=== PATIENT | male | born 1990 | race Two or more races ===

== ENCOUNTER 2018-06-17 16:34 | Inpatient (IN) | payer OTHER ==
[2018-06-17 19:45] VITALS: BMI 26.9
--- NOTE | 2018-06-17 21:04 | HP ---
COWS - Scale Resting Pulse: 0= [place] 80 or Below Sweatin=Flushed/Facial Moisture Restless Observation: 1= Difficult to Sit Still Pupil Size: 1= Pupils >than Normal Bone or Joint Aches: 1= Mild Discomfort Runny Nose/ Eye Tearin= Runny Nose/Eyes GI Upset > 30mins: 2= Nausea/Diarrhea Tremor Observation: 1= Tremor [place], Not Seen Yawning Observation: 1= 1-2x During Session Anxiety or Irritability: 1=Feels Anxious/Irritable Goose Flesh Skin: 3=Piloerection COWS Score: 15 CIWA Score Nausea/Vomitin Muscle Tremors: 2 Anxiety: 2 Agitation: 0-Normal Activity Paroxysmal Sweats: 2 Orientation: 1-Uncertain about Date Tacttile Disturbances: 1-Very Mild Itch/Numbness Auditory Disturbances: 1-Very Mild Visual Disturbances: 1-Very Mild Sensitivity Headache: 2-Mild CIWA-Ar Total Score: 14 - Admission Criteria OASAS Guidelines: Admission for Medically Managed Detox: Requires at least one of the followin. CIWA greater than 12 2. Seizures within the past 24 hours 3. Delirium tremens within the past 24 hours 4. Hallucinations within the past 24 hours 5. Acute intervention needed for co occurring medical disorder 6. Acute intervention needed for co occurring psychiatric disorder 7. Severe withdrawal that cannot be handled at a lower level of care (continued vomiting, continued diarrhea, abnormal vital signs) requiring intravenous medication and/or fluids 8. Admission ROS [facility] Chief Complaint: Withdrawal symptoms Allergies/Adverse Reactions: Allergies Allergy/AdvReac Type Severity Reaction Status Date / Time No Known Allergies Allergy Verified 06/17/18 19:33 History of Present Illness: 27 y.o. man with an extensive history of heroin, alcohol, marijuana and Xanax dependence is here seeking detox services. He reports he last completed detox in January, at [facility]. [employer] reviewed and 90 tablets of Xanax was last dispensed on 06/12/18; utox negative for benzo's. Exam Limitations: No Limitations - Ebola screening Have you traveled outside of the country in the last 21 days: No Have you had contact with anyone from an Ebola affected area: No Do you have a fever: No - Review of Systems Constitutional: Chills, Loss of Appetite, Changes in sleep, Weakness, Unexplained wgt Loss EENT: reports: Ear Discharge, Nose Congestion Respiratory: reports: No Symptoms reported Cardiac: reports: No Symptoms Reported GI: reports: Nausea : reports: No Symptoms Reported Musculoskeletal: reports: Back Pain, Joint Swelling, Neck Pain Integumentary: reports: No Symptoms Reported Neuro: reports: Headache, Seizure (Benzo induced), Tremors, Weakness, Dizziness Endocrine: reports: No Symptoms Reported Hematology: reports: No Symptoms Reported Psychiatric: reports: Orientated x3, Anxious, Depressed, other (INSOMNIA, ADHD) Other Systems: Reviewed and Negative Patient History - Patient Medical History Hx Anemia: No Hx Asthma: No Hx Chronic Obstructive Pulmonary Disease (COPD): No Hx Cancer: No Hx Cardiac Disorders: No Hx Congestive Heart Failure: No Hx Hypertension: No Hx Hypercholesterolemia: No Hx Pacemaker: No HX Cerebrovascular Accident: No Hx Seizures: Yes (BENZO INDUCED: LAST WAS 01/2018) Hx Dementia: No Hx Diabetes: No Hx Gastrointestinal Disorders: No Hx Liver Disease: No Hx Genitourinary Disorders: No Hx Sexually Transmitted Disorders: No Hx Renal Disease (ESRD): No Hx Thyroid Disease: No Hx Human Immunodeficiency Virus (HIV): No Hx Hepatitis C: No Hx Depression: Yes Hx Suicide Attempt: No Hx Bipolar Disorder: No Hx Schizophrenia: No - Patient Surgical History Past Surgical History: No - PPD History Previous Implant?: Yes Documented Results: Negative w/o proof PPD to be Administered?: Yes - Reproductive History Patient is a Female of Child Bearing Age (11 -55 yrs old): No - Smoking Cessation Smoking history: Current every day smoker Have you smoked in the past 12 months: Yes Aproximately how many cigarettes per day: 3 Initiated information on smoking cessation: Yes 'Breaking Loose' booklet given: 06/17/18 - Substance & Tx. History Hx Alcohol Use: Yes Hx Substance Use: Yes Substance Use Type: Alcohol, Cocaine, Heroin, Marijuana, Opiates, Tranquilizers Hx Substance Use Treatment: Yes (DETOX: 01/2018) - Substances abused Heroin Substance route: Injection Frequency: Daily Amount used: 2 GM Age of first use: 15 Date of last use: 06/17/18 Alcohol Substance route: Oral Frequency: Daily Amount used: 1 PINT Age of first use: 12 Date of last use: 06/16/18 Alprazolam (Xanax) Substance route: Oral Frequency: Daily Amount used: 6-8MG Age of first use: 15 Date of last use: 06/16/18 Crack Substance route: Smoking Frequency: Daily Amount used: 1 GM Age of first use: 22 Date of last use: 06/16/18 Marijuana/Hashish Substance route: Smoking Frequency: Daily Amount used: 3 JOINTS Age of first use: 14 Date of last use: 06/16/18 Oxycontin Substance route: Injection Frequency: Daily Amount used: 2 TABS Age of first use: 26 Date of last use: 06/16/18 Family Disease History - Family Disease History Family Disease History: Respiratory: Grandparent Admission Physical Exam [facility] - Vital Signs Vital Signs: Vital Signs - 24 hr 06/17/18 19:25 Temperature 99.7 F H Pulse Rate 62 Respiratory 18 Rate Blood Pressure 126/90 - Physical General Appearance: Yes: Tremorous, Irritable, Sweating, Anxious HEENTM: Yes: Hearing grossly Normal, Normocephalic, Normal Voice Respiratory: Yes: Chest Non-Tender, Lungs Clear, Normal Breath Sounds, No Respiratory Distress, No Accessory Muscle Use Neck: Yes: No masses,lesions,Nodules Breast: Yes: Breast Exam Deferred Cardiology: Yes: Regular Rhythm, Regular Rate Abdominal: Yes: Normal Bowel Sounds, Non Tender, Flat Genitourinary: Yes: Other (no complaints reported) Musculoskeletal: Yes: Back pain Extremities: Yes: Normal Inspection, Normal Range of Motion, Non-Tender Neurological: Yes: Alert, Normal Mood/Affect, Normal Response Integumentary: Yes: Normal Color, Dry, Warm Lymphatic: Yes: Within Normal Limits - Diagnostic (1) Uncomplicated opioid dependence Current Visit: Yes Status: Chronic (2) Alcohol dependence with uncomplicated intoxication Current Visit: Yes Status: Chronic (3) Marijuana dependence Current Visit: Yes Status: Chronic (4) Benzodiazepine dependence Current Visit: Yes Status: Chronic (5) Cocaine dependence Current Visit: Yes Status: Chronic (6) Nicotine dependence Current Visit: Yes Status: Chronic Cleared for Admission [facility] - Detox or Rehab [facility] Level of Care: Medically Managed Detox Regimen/Protocol: Methadone (Methadone and Ativan detox protocol ) Claeared for Rehab Admission: No Breathalyzer - Breathalyzer Breathalyzer: 0 Urine Drug Screen - Control Is test valid?: Yes - Results Drug screen NEGATIVE: No Urine drug screen results: THC-Marijuana, GILMER-Cocaine, FEN-Fentanyl, MOP-Opiates , MTD-Methadone Inpatient Rehab Admission - Rehab Decision to Admit Inpatient rehab admission?: No
[2018-06-17] MEDS ORDERED: NALOXONE HCL 0.4 MG/ML VIAL IVPUSH PRN (21:08)
[2018-06-17] MEDS ORDERED: cloNIDine HCL 0.1 MG TABLET PO PRN (21:08)
[2018-06-17] MEDS ORDERED: MENTHOL/PHENOL 1 EACH UD MM PRN (21:08)
[2018-06-17] MEDS ORDERED: IBUPROFEN 600 MG TABLET (FP) PO PRN (21:08)
[2018-06-17] MEDS ORDERED: MAGNESIUM CITRATE 300 ML BOTTLE PO PRN (21:08)
[2018-06-17] MEDS ORDERED: BISMUTH SUBSALICYLATE 524 MG/30 ML UD PO PRN (21:08)
[2018-06-17] MEDS ORDERED: MAGNESIUM HYDROX 2400MG/30ML ORAL SUSPENSION 30 ML CUP PO PRN (21:08)
[2018-06-17] MEDS ORDERED: METHADONE HCL 10 MG TABLET (FOR DETOX USE ONLY) PO ONE ×2 (21:08→23:00)
[2018-06-17] MEDS ORDERED: ONDANSETRON *ODT* 4 MG TABLET SL PRN (21:08)
[2018-06-17] MEDS ORDERED: ACETAMINOPHEN 325 MG TABLET (FP) PO PRN ×2 (21:08)
[2018-06-17] MEDS ORDERED: MAG HYDROX/AL HYDROX/SIMETH 30 ML UNIT-DOSE CUP PO PRN (21:08)
[2018-06-17] MEDS ORDERED: LORazepam 2 MG TABLET PO ONE (21:45)
[2018-06-17] MEDS: THIAMINE HCL 100 MG TABLET (FP) PO SCH (22:00)
[2018-06-17] MEDS: LORazepam 2 MG TABLET PO SCH (22:55)
[2018-06-18] MEDS: LORazepam 2 MG TABLET PO SCH ×3 (07:07→17:54)
[2018-06-18] MEDS: METHOCARBAMOL 500 MG TABLET PO PRN ×2 (07:07→20:53)
[2018-06-18] MEDS: LORazepam 1 MG TABLET PO PRN (09:06)
--- NOTE | 2018-06-18 09:42 | PN ---
S CIWA - CIWA Score Nausea/Vomitin-Mild Nausea/No Vomiting Muscle Tremors: 3 Anxiety: 2 Agitation: 3 Paroxysmal Sweats: 1-Minimal Palms Moist Orientation: 0-Oriented Tacttile Disturbances: 0-None Auditory Disturbances: 0-None Visual Disturbances: 0-None Headache: 2-Mild CIWA-Ar Total Score: 12 BHS COWS - Scale Resting Pulse: 0= [place] 80 or Below Sweatin= Chills/Flushing Restless Observation: 1= Difficult to Sit Still Pupil Size: 0= Normal to Room Light Bone or Joint Aches: 1= Mild Discomfort Runny Nose/ Eye Tearin= Nasal Congestion GI Upset > 30mins: 2= Nausea/Diarrhea Tremor Observation of Outstretched Hands: 2= Slight Tremor Visible Yawning Observation: 2= >3x During Session Anxiety or Irritability: 2=Irritable/Anxious Goose Flesh Skin: 0=Smooth Skin COWS Score: 12 S Progress Note (SOAP) Subjective: doing fine ambulating on hallway tolerate food and fluid well Objective: 06/18/18 09:50 Vital Signs Temperature 96.6 F L 06/18/18 09:02 Pulse Rate 71 06/18/18 09:02 Respiratory Rate 18 06/18/18 09:02 Blood Pressure 127/91 06/18/18 09:02 O2 Sat by Pulse Oximetry (%) 06/18/18 09:51 lab pending Assessment: 06/18/18 09:59 alcohol benzo opiate withdrawal sx Plan: continue detox
[2018-06-18] MEDS ORDERED: METHADONE HCL 10 MG TABLET (FOR DETOX USE ONLY) PO ONE (10:00)
[2018-06-18] MEDS: PRENATAL VITAMINS W/ FOLIC ACID TABLET (FP) PO SCH (10:27)
--- NOTE | 2018-06-18 12:14 | EKG ---
Test Reason : Blood Pressure : / mmHG Vent. Rate : 054 BPM Atrial Rate : 054 BPM P-R Int : 136 ms QRS Dur : 100 ms QT Int : 460 ms P-R-T Axes : 016 063 040 degrees QTc Int : 436 ms SINUS BRADYCARDIA OTHERWISE NORMAL ECG NO PREVIOUS ECGS AVAILABLE Confirmed by MD Edilberto, Erlin ([id number]) on 06/18/2018 12:14:00 PM Referred By: Confirmed By:Erlin Casanova MD
[2018-06-18 12:24] LABS: HEMATOCRIT 36.7 % (35.4-49); HEMOGLOBIN 11.9 GM/dL (11.7-16.9); MCH 27.8 pg (25.7-33.7); MCHC 32.5 g/dl (32.0-35.9); MEAN CELL VOLUME 85.4 fl (80-96); MEAN PLT VOLUME 9.4 fl (7.5-11.1); PLATELET COUNT 169 K/MM3 (134-434); RDW 14.3 % (11.9-15.9); WHITE BLOOD COUNT 4.2 K/mm3 (4.0-10.0)
[2018-06-18 12:32] LABS: ALBUMIN 3.5 g/dl (3.4-5.0); BILIRUBIN,TOTAL 0.6 mg/dL (0.2-1); CALCIUM 9.2 mg/dL (8.5-10.1); CREATININE 0.9 mg/dL (0.55-1.3); POTASSIUM 4.2 mmol/L (3.5-5.1); TOT PROT 6.7 g/dl (6.4-8.2)
[2018-06-18] MEDS: hydrOXYzine PAMOATE 50 MG CAPSULE (FP) PO PRN (13:51)
--- NOTE | 2018-06-18 17:32 | CONSULT ---
[facility] Psychiatric Consult - Data Date of interview: 06/18/18 Admission source: [facility] Identifying data: First admission to [facility] for this 27 y/o [place] male self-referred for detoxification treatment (cocaine, cannabis, xanax, heroin, alcohol). Examined at [address] [place] [id number]. Patient is single, no dependents, homeless, unemployed and supported on food stamps. Substance Abuse History: Confirmed by patient in this interview : Smoking history: Current every day smoker. Have you smoked in the past 12 months: Yes. Aproximately how many cigarettes per day: 3. Initiated information on smoking cessation: Yes. 'Breaking Loose' booklet given: 06/17/18. - Substance & Tx. History. Hx Alcohol Use: Yes. Hx Substance Use: Yes. Substance Use Type : Alcohol, Cocaine, Heroin, Marijuana, Opiates, Tranquilizers. Hx Substance Use Treatment: Yes (DETOX: 01/2018). - Substances abused. Heroin. Substance route: Injection. Frequency: Daily. Amount used: 2 GM. Age of first use: 15. Date of last use: 06/17/18. Alcohol. Substance route: Oral. Frequency: Daily. Amount used: 1 PINT. Age of first use: 12. Date of last use: 06/16/18. Alprazolam (Xanax). Substance route: Oral. Frequency: Daily. Amount used: 6-8MG. Age of first use: 15. Date of last use: 06/16/18. Crack. Substance route: Smoking. Frequency: Daily. Amount used: 1 GM. Age of first use: 22. Date of last use: 06/16/18. Marijuana/Hashish. Substance route: Smoking. Frequency: Daily. Amount used: 3 JOINTS. Age of first use: 14. Date of last use: 06/16/18. Oxycontin. Substance route: Injection. Frequency: Daily. Amount used: 2 TABS. Age of first use: 26. Date of last use: 06/16/18 Medical History: Patient endorses good general health. Psychiatric History: No reported history of psychiatric hospitalizations. Mr Garay states that he is currently under the care of a private psychiatrist in [place] (diagnosed with MDD + ADHD). Medicated with adderall, xanax and zolpidem. Patient indicates that he used to be on paroxetine. Denies history of suicide attempts. Physical/Sexual Abuse/Trauma History: No history of abuse (self-report). Additional Comment: Urine drug screen results: THC-Marijuana, GILMER-Cocaine, FEN- Fentanyl, MOP-Opiates, MTD-Methadone. Noted. Mental Status Exam - Mental Status Exam Alert and Oriented to: Time, Place, Person Cognitive Function: Good Patient Appearance: Well Groomed Mood: Nervous, Withdrawn, Anxious Affect: Mood Congruent, Constricted Patient Behavior: Fatigued, Appropriate, Cooperative Speech Pattern: Clear, Appropriate Voice Loudness: Normal Thought Process: Goal Oriented Thought Disorder: Not Present Hallucinations: Denies Suicidal Ideation: Denies Homicidal Ideation: Denies Insight/Judgement: Poor Sleep: Poorly, Difficulty falling asleep Appetite: Good Muscle strength/Tone: Normal Gait/Station: Normal Psychiatric Findings - Problem List ([place] 1, 2,3) (1) Uncomplicated opioid dependence Current Visit: Yes Status: Chronic (2) Alcohol dependence with uncomplicated intoxication Current Visit: Yes Status: Acute (3) Benzodiazepine dependence Current Visit: Yes Status: Chronic (4) Cocaine dependence Current Visit: Yes Status: Chronic (5) Marijuana dependence Current Visit: Yes Status: Chronic (6) Nicotine dependence Current Visit: Yes Status: Chronic (7) Substance induced mood disorder Current Visit: Yes Status: Chronic (8) Insomnia Current Visit: Yes Status: Chronic - Initial Treatment Plan Initial Treatment Plan: Psychoeducation. Sleep hygiene. Detoxification. Seroquel 100 mg po hs (patient's request). Side effects/benefits discussed with the patient. Mr Garay gave verbal consent to MD. Salcido.
[2018-06-18] MEDS: QUEtiapine FUMARATE 100 MG TABLET (FP) PO SCH (22:12)
[2018-06-18] MEDS: LORazepam 1 MG TABLET PO SCH (22:12)
[2018-06-18] MEDS: traZODone HCL 50 MG TABLET (FP) PO PRN (22:13)
[2018-06-18] MEDS: THIAMINE HCL 100 MG TABLET (FP) PO SCH (22:13)
[2018-06-18] MEDS: MELATONIN 5 MG TABLETS PO PRN (22:13)
[2018-06-19] MEDS: METHOCARBAMOL 500 MG TABLET PO PRN ×3 (05:09→17:56)
[2018-06-19] MEDS: LORazepam 1 MG TABLET PO SCH ×3 (05:10→17:54)
[2018-06-19] MEDS ORDERED: METHADONE HCL 10 MG TABLET (FOR DETOX USE ONLY) PO ONE (10:00)
[2018-06-19] MEDS: PRENATAL VITAMINS W/ FOLIC ACID TABLET (FP) PO SCH (10:14)
[2018-06-19] MEDS: hydrOXYzine PAMOATE 50 MG CAPSULE (FP) PO PRN ×2 (12:37→20:49)
--- NOTE | 2018-06-19 14:34 | PN ---
S CIWA - CIWA Score Nausea/Vomitin-Mild Nausea/No Vomiting Muscle Tremors: 2 Anxiety: 2 Agitation: 2 Paroxysmal Sweats: 1-Minimal Palms Moist Orientation: 1-Uncertain about Date Tacttile Disturbances: 0-None Auditory Disturbances: 1-Very Mild Visual Disturbances: 0-None Headache: 0-None Present CIWA-Ar Total Score: 10 BHS COWS - Scale Resting Pulse: 0= [place] 80 or Below Sweatin= Chills/Flushing Restless Observation: 0= Sits Still Pupil Size: 0= Normal to Room Light Bone or Joint Aches: 1= Mild Discomfort Runny Nose/ Eye Tearin= Nasal Congestion GI Upset > 30mins: 1= Stomach Cramp Tremor Observation of Outstretched Hands: 2= Slight Tremor Visible Yawning Observation: 1= 1-2x During Session Anxiety or Irritability: 2=Irritable/Anxious Goose Flesh Skin: 0=Smooth Skin COWS Score: 9 BHS Progress Note (SOAP) Subjective: doing ok today social with peers in day room discuss aftercare with staff Objective: 06/19/18 14:34 Vital Signs Temperature 96.8 F L 06/19/18 13:18 Pulse Rate 74 06/19/18 13:18 Respiratory Rate 18 06/19/18 13:18 Blood Pressure 133/77 06/19/18 13:18 O2 Sat by Pulse Oximetry (%) Laboratory Last Values WBC 4.2 K/mm3 (4.0-10.0) 06/18/18 07:30 RBC 4.30 M/mm3 (4.00-5.60) 06/18/18 07:30 Hgb 11.9 GM/dL (11.7-16.9) 06/18/18 07:30 Hct 36.7 % (35.4-49) 06/18/18 07:30 MCV 85.4 fl (80-96) 06/18/18 07:30 MCH 27.8 pg (25.7-33.7) 06/18/18 07:30 MCHC 32.5 g/dl (32.0-35.9) 06/18/18 07:30 RDW 14.3 % (11.9-15.9) 06/18/18 07:30 Plt Count 169 K/MM3 (134-434) 06/18/18 07:30 MPV 9.4 fl (7.5-11.1) 06/18/18 07:30 Sodium 138 mmol/L (136-145) 06/18/18 07:30 Potassium 4.2 mmol/L (3.5-5.1) 06/18/18 07:30 Chloride 106 mmol/L (98-107) 06/18/18 07:30 Carbon Dioxide 31 mmol/L (21-32) 06/18/18 07:30 Anion Gap 2 MMOL/L (8-16) L 06/18/18 07:30 BUN 17 mg/dL (7-18) 06/18/18 07:30 Creatinine 0.9 mg/dL (0.55-1.3) 06/18/18 07:30 Est GFR (CKD-EPI)AfAm 135.19 06/18/18 07:30 Est GFR (CKD-EPI)NonAf 116.64 06/18/18 07:30 Random Glucose 82 mg/dL (74-106) 06/18/18 07:30 Calcium 9.2 mg/dL (8.5-10.1) 06/18/18 07:30 Total Bilirubin 0.6 mg/dL (0.2-1) 06/18/18 07:30 AST 63 U/L (15-37) H 06/18/18 07:30 ALT 93 U/L (13-61) H 06/18/18 07:30 Alkaline Phosphatase 78 U/L (45-117) 06/18/18 07:30 Total Protein 6.7 g/dl (6.4-8.2) 06/18/18 07:30 Albumin 3.5 g/dl (3.4-5.0) 06/18/18 07:30 RPR Titer Nonreactive (NONREACTIVE) 06/18/18 07:30 lab noted Assessment: 06/19/18 14:35 withdrawal sx Plan: continue detox
[2018-06-19] MEDS: LORazepam 1 MG TABLET PO PRN (14:38)
[2018-06-19] MEDS: LORazepam 0.5 MG TABLET PO SCH (22:20)
[2018-06-19] MEDS: THIAMINE HCL 100 MG TABLET (FP) PO SCH (22:20)
[2018-06-19] MEDS: QUEtiapine FUMARATE 100 MG TABLET (FP) PO SCH (22:20)
[2018-06-19] MEDS: traZODone HCL 50 MG TABLET (FP) PO PRN (22:21)
[2018-06-19] MEDS: MELATONIN 5 MG TABLETS PO PRN (22:36)
[2018-06-19] MEDS ORDERED: LORazepam 0.5 MG TABLET PO PRN (23:00)
[2018-06-20] MEDS: LORazepam 0.5 MG TABLET PO SCH ×3 (05:49→17:12)
[2018-06-20] MEDS: METHOCARBAMOL 500 MG TABLET PO PRN ×2 (05:49→12:15)
[2018-06-20] MEDS: hydrOXYzine PAMOATE 50 MG CAPSULE (FP) PO PRN ×2 (08:58→15:33)
[2018-06-20] MEDS: PRENATAL VITAMINS W/ FOLIC ACID TABLET (FP) PO SCH (08:59)
[2018-06-20] MEDS ORDERED: METHADONE HCL 10 MG TABLET (FOR DETOX USE ONLY) PO ONE (10:00)
--- NOTE | 2018-06-20 15:37 | PN ---
S CIWA - CIWA Score Nausea/Vomitin-No Nausea/No Vomiting Muscle Tremors: 2 Anxiety: 2 Agitation: 2 Paroxysmal Sweats: No Perspiration Orientation: 0-Oriented Tacttile Disturbances: 0-None Auditory Disturbances: 0-None Visual Disturbances: 0-None Headache: 0-None Present CIWA-Ar Total Score: 6 BHS COWS - Scale Resting Pulse: 1= [place] 81-100 Sweatin= Chills/Flushing Restless Observation: 0= Sits Still Pupil Size: 0= Normal to Room Light Bone or Joint Aches: 1= Mild Discomfort Runny Nose/ Eye Tearin= None GI Upset > 30mins: 0= None Tremor Observation of Outstretched Hands: 1= Tremor [place], Not Seen Yawning Observation: 0= None Anxiety or Irritability: 1=Feels Anxious/Irritable Goose Flesh Skin: 0=Smooth Skin COWS Score: 5 S Progress Note (SOAP) Subjective: feeling better considering suboxone program Objective: 06/20/18 15:36 Vital Signs Temperature 97.7 F 06/20/18 14:16 Pulse Rate 85 06/20/18 14:16 Respiratory Rate 20 06/20/18 14:16 Blood Pressure 123/82 06/20/18 14:16 O2 Sat by Pulse Oximetry (%) Laboratory Last Values WBC 4.2 K/mm3 (4.0-10.0) 06/18/18 07:30 RBC 4.30 M/mm3 (4.00-5.60) 06/18/18 07:30 Hgb 11.9 GM/dL (11.7-16.9) 06/18/18 07:30 Hct 36.7 % (35.4-49) 06/18/18 07:30 MCV 85.4 fl (80-96) 06/18/18 07:30 MCH 27.8 pg (25.7-33.7) 06/18/18 07:30 MCHC 32.5 g/dl (32.0-35.9) 06/18/18 07:30 RDW 14.3 % (11.9-15.9) 06/18/18 07:30 Plt Count 169 K/MM3 (134-434) 06/18/18 07:30 MPV 9.4 fl (7.5-11.1) 06/18/18 07:30 Sodium 138 mmol/L (136-145) 06/18/18 07:30 Potassium 4.2 mmol/L (3.5-5.1) 06/18/18 07:30 Chloride 106 mmol/L (98-107) 06/18/18 07:30 Carbon Dioxide 31 mmol/L (21-32) 06/18/18 07:30 Anion Gap 2 MMOL/L (8-16) L 06/18/18 07:30 BUN 17 mg/dL (7-18) 06/18/18 07:30 Creatinine 0.9 mg/dL (0.55-1.3) 06/18/18 07:30 Est GFR (CKD-EPI)AfAm 135.19 06/18/18 07:30 Est GFR (CKD-EPI)NonAf 116.64 06/18/18 07:30 Random Glucose 82 mg/dL (74-106) 06/18/18 07:30 Calcium 9.2 mg/dL (8.5-10.1) 06/18/18 07:30 Total Bilirubin 0.6 mg/dL (0.2-1) 06/18/18 07:30 AST 63 U/L (15-37) H 06/18/18 07:30 ALT 93 U/L (13-61) H 06/18/18 07:30 Alkaline Phosphatase 78 U/L (45-117) 06/18/18 07:30 Total Protein 6.7 g/dl (6.4-8.2) 06/18/18 07:30 Albumin 3.5 g/dl (3.4-5.0) 06/18/18 07:30 RPR Titer Nonreactive (NONREACTIVE) 06/18/18 07:30 lab noted Assessment: 06/20/18 15:36 alcohol and opiate withdrawal sx Plan: continue detox
[2018-06-20 17:36] VITALS: BP 131/92; PULSE 101; TEMP 97.3
[2018-06-21] MEDS ORDERED: METHADONE HCL 5 MG TABLET (FOR DETOX USE ONLY) PO ONE (06:00)
== END 2018-06-20 18:15 | disposition left against medical advice (07) | DRG 770 ==
LOC: YASAS 16:34 → Y3N 20:56
PROVIDERS: ADMIT Surgery; ATTEND Surgery
PROC: HZ2ZZZZ Detoxification Services for Substance Abuse Treatment (ICD-10-PCS; principal; 2018-06-17)
DX: F11.23 Opioid dependence with withdrawal (principal); F10.230 Alcohol dependence with withdrawal, uncomplicated; F10.220 Alcohol dependence with intoxication, uncomplicated; F13.20 Sedative, hypnotic or anxiolytic dependence, uncomplicated; F14.20 Cocaine dependence, uncomplicated; F12.20 Cannabis dependence, uncomplicated; F17.210 Nicotine dependence, cigarettes, uncomplicated; F19.24 Other psychoactive substance dependence with psychoactive substance-induced mood disorder; G47.00 Insomnia, unspecified; Z86.69 Personal history of other diseases of the nervous system and sense organs
CPT/HCPCS: 36415; 80053; 85027; 86593; 93005; 93010; J0735; Q0162